=== PATIENT | male | born 1985 | race Caucasian/White ===

== ENCOUNTER 2018-12-29 15:37 | Emergency (ER) | payer MEDICAID ==
[2018-12-29] MEDS: KETOROLAC 30 MG INJ IM (17:13)
[2018-12-29 17:22] LABS: ADD MAN DIFF? NO
[2018-12-29 17:24] LABS: BASOPHILS % 0.2 % (0.0-2.0); EOSINOPHILS % 0.2 % (0.0-7.0); HEMATOCRIT 46.3 % (42.0-52.0); HEMOGLOBIN 15.5 g/dl (14.0-18.0); LYMPHOCYTES # 2.5 10^3/ul (0.8-2.9); LYMPHOCYTES % 21.5 % (15.0-51.0); MEAN CORPUSCULAR HEMOGLOBIN 29.4 pg (29.0-33.0); MEAN CORPUSCULAR HGB CONC 33.5 g/dl (32.0-37.0); MEAN CORPUSCULAR VOLUME 87.7 fl (82.0-101.0); MEAN PLATELET VOLUME 9.9 fl (7.4-10.4); MONOCYTE # 0.9 10^3/ul (0.3-0.9); MONOCYTES % 7.8 % (0.0-11.0); NEUTROPHIL # 8.1 10^3/ul (1.6-7.5); PLATELET COUNT 235 10^3/UL (140-415); RED BLOOD COUNT 5.28 10^6/ul (4.70-6.10); RED CELL DISTRIBUTION WIDTH 12.5 % (11.5-14.5)
[2018-12-29 17:24] LABS: WHITE BLOOD COUNT 11.5 10^3/ul (4.8-10.8)
[2018-12-29 17:37] LABS: URIC ACID 9.2 mg/dl (3.1-7.9)
[2018-12-29 18:41] LABS: ERYTHROCYTE SEDIMENTATION RATE 18 mm/Hr (0-15)
== END 2018-12-29 20:05 | disposition home or self-care (01) ==
LOC: FTE 15:37
DX: M10.9 Gout, unspecified (principal)
CPT/HCPCS: 73080; 73080-RT; 84560; 85025; 85651; 96372; 99284-25

== ENCOUNTER 2019-06-24 09:44 | Emergency (ER) | payer MEDICAID ==
[2019-06-24] MEDS: IBUPROFEN 600 MG TAB PO (11:16)
== END 2019-06-24 13:15 | disposition home or self-care (01) ==
LOC: FTE 09:44
DX: M25.571 Pain in right ankle and joints of right foot (principal)
CPT/HCPCS: 73610; 73610-RT; 73630; 99283-25